=== PATIENT | female | born 1965 | race African-American/Black ===

== ENCOUNTER 2016-08-24 18:06 | Emergency (ER) | payer OTHER ==
[~2016-08-24] VITALS: Ht 149.9 cm; Wt 93.0 kg
[~2016-08-24 18:06] MED LIST: CHOL10002 PO; CLON2TAB4 PO; DIVA500T2 PO; HYDR-551 PO; METH5TAB6 PO
--- NOTE | 2016-08-24 20:29 | NUR ---
ERMD at bedside for MSE.
--- NOTE | 2016-08-24 21:15 | NUR ---
Patient discharged to home in stable conditon. Written and verbal after care instructions given. Patient verbalizes understanding of instructions.
== END 2016-08-24 21:16 | disposition home or self-care (01) ==
LOC: ER 18:13
DX: H54.7 Unspecified visual loss (principal); R22.9 Localized swelling, mass and lump, unspecified; F31.9 Bipolar disorder, unspecified; F17.200 Nicotine dependence, unspecified, uncomplicated; E05.90 Thyrotoxicosis, unspecified without thyrotoxic crisis or storm; Z88.8 Allergy status to other drugs, medicaments and biological substances
CPT/HCPCS: 99282; A4663

== ENCOUNTER 2016-10-10 16:44 | Emergency (ER) | payer MEDICAID, OTHER ==
[~2016-10-10] VITALS: Ht 149.9 cm; Wt 90.3 kg
[2016-10-10] MEDS ORDERED: FLUO40CA8 PO (16:55)
[2016-10-10] MEDS ORDERED: SULI150T PO (16:55)
--- NOTE | 2016-10-10 17:06 | NUR ---
DR MASON AT THE BEDSIDE FOR EVAL AND EXAM.
[2016-10-10 17:19] LABS: *BLOOD, URINE 2+ (NEGATIVE); *COLOR,URINE DARK YELLOW (YELLOW); *KETONES,URINE NEGATIVE (NEGATIVE); NITRITE, URINE NEGATIVE (NEGATIVE); UGLUCOSE NEGATIVE (NEGATIVE)
[2016-10-10 17:29] LABS: *CLARITY,URINE CLOUDY (CLEAR); *PROTEIN,URINE 3+ (NEGATIVE)
[2016-10-10 17:30] LABS: *BILIRUBIN,URIN NEGATIVE (NEGATIVE); LEUKOCYTE ESTERASE ,URINE 2+ (NEGATIVE)
[2016-10-10 17:31] LABS: *URINE HCG, QUAL NEGATIVE (NEGATIVE); BACTERIA,URINE MODERATE /HPF (NONE SEEN); MUCUS,URINE MODERATE /LPF (0-FEW); RBC,URINE 50-80 /HPF (0-3); SQUAMOUS EPITHELIAL CELL,UR MANY /HPF (NONE SEEN); WBC,URINE 80-100 /HPF (0-3)
[2016-10-10 17:39] VITALS: BP 129/77
--- NOTE | 2016-10-10 17:40 | NUR ---
Patient discharged to home in stable conditon. Written and verbal after care instructions given. Patient verbalizes understanding of instructions.
== END 2016-10-10 17:41 | disposition home or self-care (01) ==
LOC: ER 16:44
DX: N30.00 Acute cystitis without hematuria (principal); R31.29 Other microscopic hematuria; R35.0 Frequency of micturition; F17.200 Nicotine dependence, unspecified, uncomplicated; E03.9 Hypothyroidism, unspecified
CPT/HCPCS: 81001; 84703; 87086; 99284; A4663

== ENCOUNTER 2016-12-03 10:22 | Emergency (ER) | payer OTHER ==
[~2016-12-03] VITALS: Ht 149.9 cm; Wt 88.5 kg
[~2016-12-03 10:22] MED LIST changes: +FLUO40CA8 PO; +SULI150T PO
--- NOTE | 2016-12-03 10:40 | NUR ---
Dr Vyas at the bedside for eval and exam.
[2016-12-03 10:43] LABS: *BILIRUBIN,URIN NEGATIVE (NEGATIVE); *BLOOD, URINE Trace-intact (NEGATIVE); *CLARITY,URINE TURBID (CLEAR); *COLOR,URINE YELLOW (YELLOW); *KETONES,URINE NEGATIVE (NEGATIVE); *PROTEIN,URINE TRACE (NEGATIVE); *UROBILINOGEN,URINE 0.2 E.U./dl (NORMAL); LEUKOCYTE ESTERASE ,URINE 1+ (NEGATIVE); NITRITE, URINE NEGATIVE (NEGATIVE); UGLUCOSE NEGATIVE (NEGATIVE)
[2016-12-03] MEDS ORDERED: NAPROXEN 500 MG TABLET PO ONE (10:45)
[2016-12-03 10:59] LABS: BACTERIA,URINE FEW /HPF (NONE SEEN); SQUAMOUS EPITHELIAL CELL,UR FEW /HPF (NONE SEEN)
[2016-12-03] MEDS ORDERED: NAPROXEN 500 MG TABLET ONE (11:03)
--- NOTE | 2016-12-03 11:58 | NUR ---
Pt while being discharged started being rude and cursing at staff accusing of staff using profanity. I excused myself to pt until she composed herself. I step out of the room but pt followed me to nurse station and continue to be verbally abusive and loud.
[2016-12-03 12:02] VITALS: BP 116/70
--- NOTE | 2016-12-03 12:04 | NUR ---
Dr Vyas spoke to pt and clarified discharge paperwork.
--- NOTE | 2016-12-03 12:13 | NUR ---
Patient discharged to home in stable conditon. Written and verbal after care instructions given. Patient verbalizes understanding of instructions.
--- NOTE | 2016-12-03 12:14 | NUR ---
Pt left ER while using profanity toward staff.
== END 2016-12-03 12:14 | disposition home or self-care (01) ==
LOC: ER 10:22
DX: S83.92XA Sprain of unspecified site of left knee, initial encounter (principal); N39.0 Urinary tract infection, site not specified; E05.90 Thyrotoxicosis, unspecified without thyrotoxic crisis or storm; Y08.89XA Assault by other specified means, initial encounter; Y93.89 Activity, other specified; Y92.9 Unspecified place or not applicable; Y99.9 Unspecified external cause status
CPT/HCPCS: 87077; 87086; A4663

== ENCOUNTER 2020-08-03 16:04 | Emergency (ER) | payer OTHER ==
[~2020-08-03] VITALS: Ht 149.9 cm; Wt 90.7 kg
[~2020-08-03 16:04] MED LIST changes: +CLON2TAB11 PO; -CLON2TAB4 PO; +HYDR-4385 PO; -HYDR-551 PO
[2020-08-03] MEDS ORDERED: HYDROCODONE/APAP 5-325MG TABLET PO ONE (16:30)
[2020-08-03] MEDS ORDERED: IBUPROFEN 600 MG TABLET PO ONE (16:30)
--- NOTE | 2020-08-03 16:36 | NUR ---
PATIENT WAS SEEN BY MD. MEDICATION GIVEN ORDERED
[2020-08-03] MEDS ORDERED: HYDROCODONE/APAP 5-325MG TABLET ONE (16:38)
[2020-08-03] MEDS ORDERED: IBUPROFEN 600 MG TABLET ONE (16:38)
[2020-08-03] MEDS ORDERED: PRED20TA PO (17:01)
--- NOTE | 2020-08-03 17:11 | NUR ---
PATIENT AMBULATED TO BATHROOM WITH STEADY GAIT
--- NOTE | 2020-08-03 17:30 | NUR ---
Urine sent to lab.
[2020-08-03 17:32] LABS: *BILIRUBIN,URIN NEGATIVE (NEGATIVE); *BLOOD, URINE NEGATIVE (NEGATIVE); *CLARITY,URINE CLEAR (CLEAR); *COLOR,URINE YELLOW (YELLOW); *KETONES,URINE NEGATIVE (NEGATIVE); *UROBILINOGEN,URINE 0.2 E.U./dl (NORMAL); LEUKOCYTE ESTERASE ,URINE NEGATIVE (NEGATIVE); NITRITE, URINE NEGATIVE (NEGATIVE); PH,URINE 5.5 (5.0-8.0); UGLUCOSE NEGATIVE (NEGATIVE)
--- NOTE | 2020-08-03 18:00 | NUR ---
DC, RX AND FOLLOW UP INSTRUCTIONS GIVEN AND EXPLAINED TO PATIENT WHO STATES SHE UNDERSTANDS ALL INSTRUCTIONS
== END 2020-08-03 18:01 | disposition home or self-care (01) ==
LOC: ER 16:04
DX: G89.21 Chronic pain due to trauma (principal); M54.5 Low back pain; T14.90XS Injury, unspecified, sequela; W01.0XXS Fall on same level from slipping, tripping and stumbling without subsequent striking against object, sequela; B35.6 Tinea cruris; F31.9 Bipolar disorder, unspecified; M19.90 Unspecified osteoarthritis, unspecified site; E05.90 Thyrotoxicosis, unspecified without thyrotoxic crisis or storm; Z88.8 Allergy status to other drugs, medicaments and biological substances; Z79.899 Other long term (current) drug therapy
CPT/HCPCS: 72131; A4663; J3490; J7030